=== PATIENT | female | born 1995 | race Caucasian/White ===

== ENCOUNTER 2016-10-21 14:58 | Outpatient (CLI) | payer OTHER ==
--- NOTE | 2016-10-21 15:42 | DIAGNOSTIC IMAGING REPORT ---
PROCEDURE: US ABDOMEN ULTRASOUND-COMPLETE INDICATION: ELEVATED LIVER ENZYMES TECHNIQUE: Freedman scale and color Doppler sonographic images of the abdomen were obtained. COMPARISON: None. FINDINGS: Liver measures 17 cm with normal appearance. Normal gallbladder and CBD (3.8 mm). Spleen measures 11 x 3.6 cm, normal. Pancreas not well visualized. Aorta and IVC are patent. Normal hepatopetal flow. Normal kidneys. Right kidney measures 9.1 cm and left kidney 10.2 cm. IMPRESSION: 1. Poor visualization of the pancreas, otherwise negative abdominal ultrasound
== END 2016-10-21 23:00 ==
LOC: US SRH 14:58
DX: R94.5 Abnormal results of liver function studies (principal)

== ENCOUNTER 2016-12-26 17:29 | Emergency (ER) | payer OTHER ==
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
--- NOTE | 2016-12-26 17:56 | ED ORDER SUMMARY ---
..... Patient: AYANNA COSTELLO OrderSheet [facility] VisitID: [id number] [address] [place] [address] 21y, F Registration Date/Time: 12/26/2016 ORDER SHEET Weight: 90.7 kg (estimated) Allergies: None GENERAL ORDERS: MEDICATION ORDERS: Motrin PO 800 mg (NOW) (17:52 12/26/2016 Vargas Dimas) (Ack 17:53 Radha R.N.) (17:56 Radha R.N.) IV FLUIDS: ORDER SHEET NOTES: [Electronically signed by Agnieszka Winkler P.A.-C (18:08 12/26/2016)] [Electronically signed by Meli Johnson R.N. (18:17 12/26/2016)] [Electronically locked/signed by Meli Johnson R.N. (18:17 12/26/2016)]
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
--- NOTE | 2016-12-26 17:56 | ED ORDER SUMMARY ---
..... Patient: AYANNA COSTELLO OrderSheet [facility] VisitID: [id number] [address] [place] [address] 21y, F Registration Date/Time: 12/26/2016 ORDER SHEET Weight: 90.7 kg (estimated) Allergies: None GENERAL ORDERS: MEDICATION ORDERS: Motrin PO 800 mg (NOW) (17:52 12/26/2016 Vargas Dimas) (Ack 17:53 Radha R.N.) (17:56 Radha R.N.) IV FLUIDS: ORDER SHEET NOTES: [Electronically signed by Agnieszka Winkler P.A.-C (18:08 12/26/2016)] [Electronically signed by Meli Johnson R.N. (18:17 12/26/2016)] [Electronically locked/signed by Meli Johnson R.N. (18:17 12/26/2016)]
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
--- NOTE | 2016-12-26 18:17 | ED MED RECONCILIATION SUMMARY ---
Patient: AYANNA COSTELLO Medication Reconciliation Report [facility] VisitID: [id number] [address] [place] [address] 21y, F Registration Date/Time: 12/26/2016 Weight: 90.7 kg Height/Length: 67 in. BMI: 31.3 ALLERGIES: None The patient's Home Medications are listed below: NONE. The source(s) of the original Home Medication information: patient The following Medications were given to the patient in the Emergency Department: Motrin [PO] PO 800 mg, administered: 12/26/2016 5:56:00 PM The following Medications were prescribed to the patient: Ibuprofen 800 mg tablets: take 1 tablet orally for 5 days, as needed for pain. Dispense fifteen (15). No refill. -- Agnieszka Winkler P.A.-C
--- NOTE | 2016-12-26 18:17 | ED MED RECONCILIATION SUMMARY ---
Patient: AYANNA COSTELLO Medication Reconciliation Report [facility] VisitID: [id number] [address] [place] [address] 21y, F Registration Date/Time: 12/26/2016 Weight: 90.7 kg Height/Length: 67 in. BMI: 31.3 ALLERGIES: None The patient's Home Medications are listed below: NONE. The source(s) of the original Home Medication information: patient The following Medications were given to the patient in the Emergency Department: Motrin [PO] PO 800 mg, administered: 12/26/2016 5:56:00 PM The following Medications were prescribed to the patient: Ibuprofen 800 mg tablets: take 1 tablet orally for 5 days, as needed for pain. Dispense fifteen (15). No refill. -- Agnieszka Winkler P.A.-C
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
--- NOTE | 2016-12-26 18:17 | ED MAR SUMMARY ---
..... Medication Administration Record [facility] [address] [place] [address] Patient: AYANNA COSTELLO Visit ID: [id number] 21y, F Weight: 90.7 kg Height/Length: 67 in BMI: 31.3 ALLERGIES: None Given 17:56 12/26/2016 Rocio Reece R.N. Medication Administered: MOTRIN [PO], Dose: 800 mg PO. Medication Ordered: Motrin PO 800 mg (NOW).
--- NOTE | 2016-12-26 18:17 | ED MAR SUMMARY ---
..... Medication Administration Record [facility] [address] [place] [address] Patient: AYANNA COSTELLO Visit ID: [id number] 21y, F Weight: 90.7 kg Height/Length: 67 in BMI: 31.3 ALLERGIES: None Given 17:56 12/26/2016 Rocio Reece R.N. Medication Administered: MOTRIN [PO], Dose: 800 mg PO. Medication Ordered: Motrin PO 800 mg (NOW).
== END 2016-12-26 18:00 | disposition home or self-care (01) ==
LOC: ED SRH 17:29
DX: S09.90XA Unspecified injury of head, initial encounter (principal); S00.33XA Contusion of nose, initial encounter; W50.0XXA Accidental hit or strike by another person, initial encounter; Y92.410 Unspecified street and highway as the place of occurrence of the external cause